=== PATIENT | male | born 1965 | race Caucasian/White ===

== ENCOUNTER 2018-12-27 08:46 | Emergency (ER) | payer BC, OTHER ==
[~2018-12-27] VITALS: Ht 175.3 cm; Wt 85.0 kg
[2018-12-27] MEDS ORDERED: MORPHINE SULFATE 4 MG/ML CPJ (NOT FOR IM USE) IV STA (09:19)
[2018-12-27] MEDS ORDERED: DEXAMETHASONE 4MG/ML 1ML VIAL IV ONE (09:30)
[2018-12-27] MEDS ORDERED: MORPHINE SULFATE 4 MG/ML CPJ (NOT FOR IM USE) IV ONE (12:00)
[2018-12-27 12:13] LABS: BASOPHILS % 0.3 % (0.0-2.0); EOSINOPHILS % 0.1 % (0.0-5.0); HEMATOCRIT. 46.3 % (42.0-52.0); HEMOGLOBIN. 15.6 g/dL (14.0-18.0); LYMPHOCYTES % 8.7 % (20.0-50.0); MEAN CORPUSCULAR HEMOGLOBIN 27.7 pg (28.0-32.0); MEAN PLATELET VOLUME 7.6 fl (7.4-10.4); MONOCYTES % 1.9 % (2.0-8.0); PLATELET 214 x1000/uL (130-400); RED BLOOD CELL COUNT 5.64 mill/uL (4.7-6.1); RED CELL DISTRIBUTION WIDTH 13.4 % (11.6-14.6)
[2018-12-27 12:19] LABS: CHLORIDE 108 mEq/L (98-107)
[2018-12-27 13:39] VITALS: BP 134/72
== END 2018-12-27 13:46 | disposition short-term general hospital (02) ==
LOC: ER 08:46 → CANBEDREQ 19:00
DX: M54.89 Other dorsalgia (principal)
CPT/HCPCS: 36415; 71045; 80053; 85025; 93005; 96374; 96375; 96376; 99285; J1100; J2270; Z7610